=== PATIENT | female | born 1945 | race Caucasian/White ===

== ENCOUNTER 2016-08-03 10:08 | Outpatient (CLI) | payer MEDICARE ==
[2016-08-03 10:59] LABS: ALT (SGPT) 21 U/L (0-55); AST (SGOT) 21 U/L (5-34); Albumin 4.5 g/dL (3.4-4.8); Alkaline Phosphatase 61 U/L (40-150); Anion Gap 16 mmol/L (10-20); BUN (Urea Nitrogen) 22 mg/dL (9.8-20.1); Bilirubin, Total 0.5 mg/dL (0.2-1.2); Calc. Creatinine Clearance 0 mL/min (70-130); Calcium 10.1 mg/dL (7.8-10.44); Carbon Dioxide 26 mmol/L (23-31); Cardiac Risk 3.1 (Less than 4.5); Chloride 104 mmol/L (98-107); Cholesterol 143 mg/dL (< 200 Desired); Estimated GFR-MDRD 49; Globulin 2.9 g/dL (2.4-3.5); Glucose 156 mg/dL (80-115); HDL Cholesterol 46 mg/dL (>60 Neg Risk); LDL Cholesterol, Calculated 70 mg/dL; Protein, Total 7.4 g/dL (5.8-8.1); Sodium 140 mmol/L (136-145); Triglycerides 137 mg/dL (Less than 150)
[2016-08-03 11:37] LABS: #Eosinphils 0.1 thou/uL (0.0-0.7); #Lymphocytes 1.6 thou/uL (1.20-3.40); #Monocytes 0.4 thou/uL (0.11-0.59); #Neutrophils 4.4 thou/uL (1.40-6.50); %Basophils 0.7 % (0.0-1.0); %Eosinophils 2.2 % (0.0-10.0); %Monocytes 6.6 % (0.0-10.0); %Neutrophils 66.5 % (42.0-75.0); Mean Corpuscular HGB CONC 31.6 g/dL (32.0-36.0); Mean Corpuscular Hemoglobin 28.5 pg (27.0-31.0); Mean Corpuscular Volume 90.3 fl (81.0-99.0); Platelet Count 245 thou/uL (130-400); RBC Distribution Width 14.6 % (11.5-14.5); Red Blood Cell (RBC) Count 4.54 mill/uL (4.20-5.40); White Blood Cell (WBC) Count 6.6 thou/uL (4.8-10.8)
[2016-08-03 12:05] LABS: Hemoglobin A1c 8.2 % (4.0-6.0)
== END 2016-08-03 10:09 | disposition home or self-care (01) ==
LOC: HPCALD 10:08
PROVIDERS: ATTEND Family Medicine
DX: E78.00 Pure hypercholesterolemia, unspecified (principal); E11.9 Type 2 diabetes mellitus without complications; I10 Essential (primary) hypertension
CPT/HCPCS: 36415; 80053; 80061; 83036; 85025

== ENCOUNTER 2016-12-01 13:20 | Emergency (ER) | payer MEDICARE ==
[2016-12-01 13:58] LABS: Bilirubin Negative (Negative); Blood, Urine Moderate (Negative); Glucose, Urine (Dipstick) 500 mg/dL (Negative); Leukocyte Trace (Negative); Nitrite Negative (Negative); Protein, Urine (Dipstick) Trace mg/dL (Neg-Trace); Urobilinogen 0.2 mg/dL (0.2-1.0)
[2016-12-01 13:59] LABS: #Monocytes 0.2 thou/uL (0.11-0.59); #Neutrophils 6.9 thou/uL (1.40-6.50); %Basophils 0.5 % (0.0-1.0); %Lymphocytes 11.8 % (21.0-51.0); %Monocytes 2.8 % (0.0-10.0); %Neutrophils 84.9 % (42.0-75.0); Hemoglobin 12.8 g/dL (12.0-16.0); Mean Corpuscular HGB CONC 32.6 g/dL (32.0-36.0); Mean Platelet Volume 5.3 fL (7.4-10.4); Platelet Count 290 thou/uL (130-400); Red Blood Cell (RBC) Count 4.41 mill/uL (4.20-5.40); White Blood Cell (WBC) Count 8.1 thou/uL (4.8-10.8)
[2016-12-01 14:08] LABS: Bacteria/HPF Rare-Few HPF (None Seen); Clarity Hazy (Clear); Squamous Epithelial 0-3 HPF (0-3)
[2016-12-01 14:10] LABS: ALT (SGPT) 22 U/L (8-55); AST (SGOT) 19 U/L (5-34); Albumin 4.1 g/dL (3.4-4.8); Alkaline Phosphatase 57 U/L (40-150); Anion Gap 18 mmol/L (10-20); BUN (Urea Nitrogen) 14 mg/dL (9.8-20.1); Bilirubin, Total 0.3 mg/dL (0.2-1.2); Calc. Creatinine Clearance 0 mL/min (70-130); Calcium 9.4 mg/dL (7.8-10.44); Carbon Dioxide 21 mmol/L (23-31); Chloride 100 mmol/L (98-107); Estimated GFR-MDRD 51; Globulin 3.2 g/dL (2.4-3.5); Glucose 523 mg/dL (80-115); Protein, Total 7.3 g/dL (6.0-8.3); Sodium 134 mmol/L (136-145)
== END 2016-12-01 16:09 | disposition home or self-care (01) ==
LOC: BURERS 13:20
DX: E11.00 Type 2 diabetes mellitus with hyperosmolarity without nonketotic hyperglycemic-hyperosmolar coma (NKHHC) (principal); I10 Essential (primary) hypertension; E78.5 Hyperlipidemia, unspecified; F41.9 Anxiety disorder, unspecified; Z79.4 Long term (current) use of insulin; Z79.82 Long term (current) use of aspirin; Z79.899 Other long term (current) drug therapy; Z79.84 Long term (current) use of oral hypoglycemic drugs
CPT/HCPCS: 36415; 36416; 80053; 81003; 81015; 85025; 87077; 87086; 87186; 96360; 96361

== ENCOUNTER 2017-01-26 13:38 | Outpatient (CLI) | payer MEDICARE ==
[2017-01-26 13:52] LABS: #Basophils 0.1 thou/uL (0.0-0.2); #Eosinphils 0.2 thou/uL (0.0-0.7); #Monocytes 0.4 thou/uL (0.11-0.59); #Neutrophils 3.4 thou/uL (1.40-6.50); %Basophils 1.1 % (0.0-1.0); %Eosinophils 3.2 % (0.0-10.0); %Lymphocytes 32.4 % (21.0-51.0); %Monocytes 6.6 % (0.0-10.0); %Neutrophils 56.7 % (42.0-75.0); Hemoglobin 12.3 g/dL (12.0-16.0); Mean Corpuscular HGB CONC 31.2 g/dL (32.0-36.0); Mean Corpuscular Hemoglobin 28.1 pg (27.0-31.0); Mean Corpuscular Volume 90.2 fl (81.0-99.0); Platelet Count 234 thou/uL (130-400); RBC Distribution Width 13.7 % (11.5-14.5); Red Blood Cell (RBC) Count 4.37 mill/uL (4.20-5.40)
[2017-01-26 14:15] LABS: ALT (SGPT) 23 U/L (8-55); AST (SGOT) 21 U/L (5-34); Albumin 4.4 g/dL (3.4-4.8); Alkaline Phosphatase 61 U/L (40-150); Anion Gap 14 mmol/L (10-20); BUN (Urea Nitrogen) 11 mg/dL (9.8-20.1); Bilirubin, Total 0.5 mg/dL (0.2-1.2); Calc. Creatinine Clearance 0 mL/min (70-130); Calcium 9.8 mg/dL (7.8-10.44); Carbon Dioxide 29 mmol/L (23-31); Cardiac Risk 4.2 (Less than 4.5); Chloride 103 mmol/L (98-107); Cholesterol 212 mg/dl (< 200 Desired); Estimated GFR-MDRD 57; Globulin 2.8 g/dL (2.4-3.5); Glucose 140 mg/dL (80-115); HDL Cholesterol 50 mg/dL (>60 Neg Risk); Hemoglobin A1c 8.1 % (4.0-6.0); LDL Cholesterol, Calculated 109 mg/dL; Potassium 5.4 mmol/L (3.5-5.1); Protein, Total 7.2 g/dL (6.0-8.3); Sodium 141 mmol/L (136-145); Triglycerides 267 mg/dL (Less than 150)
== END 2017-01-26 13:39 | disposition home or self-care (01) ==
LOC: HPCALD 13:38
PROVIDERS: ATTEND Family Medicine
DX: N39.0 Urinary tract infection, site not specified (principal); E78.00 Pure hypercholesterolemia, unspecified; E11.9 Type 2 diabetes mellitus without complications; I10 Essential (primary) hypertension
CPT/HCPCS: 80053; 80061; 83036; 85025; 87077; 87086; 87186

== ENCOUNTER 2018-02-10 13:58 | Inpatient (IN) | payer MEDICARE ==
[2018-02-10 15:26] LABS: #Eosinphils 0.1 thou/uL (0.0-0.7); #Lymphocytes 1.8 thou/uL (1.20-3.40); #Monocytes 0.4 thou/uL (0.11-0.59); #Neutrophils 2.6 thou/uL (1.40-6.50); %Basophils 0.8 % (0.0-1.0); %Lymphocytes 36.9 % (21.0-51.0); %Monocytes 7.2 % (0.0-10.0); %Neutrophils 53.2 % (42.0-75.0); Hemoglobin 12.8 g/dL (12.0-16.0); Mean Corpuscular HGB CONC 31.9 g/dL (32.0-36.0); Mean Corpuscular Hemoglobin 28.1 pg (27.0-31.0); Mean Corpuscular Volume 87.9 fL (78.0-98.0); Mean Platelet Volume 6.8 fL (7.4-10.4); Platelet Count 247 thou/uL (130-400); Red Blood Cell (RBC) Count 4.56 mill/uL (4.20-5.40)
[2018-02-10 15:34] LABS: Clarity Cloudy (Clear); Glucose, Urine (Dipstick) 500 mg/dL (Negative); Leukocyte Small (Negative); Nitrite Negative (Negative); Protein, Urine (Dipstick) 30 mg/dL (Neg-Trace)
[2018-02-10 15:35] LABS: Bilirubin Negative (Negative); Blood, Urine Small (Negative); Urobilinogen 0.2 mg/dL (0.2-1.0)
[2018-02-10 15:35] LABS: ALT (SGPT) 21 U/L (8-55); AST (SGOT) 20 U/L (5-34); Albumin 4.4 g/dL (3.4-4.8); Alkaline Phosphatase 48 U/L (40-150); Anion Gap 15 mmol/L (10-20); BUN (Urea Nitrogen) 13 mg/dL (9.8-20.1); Bilirubin, Total 0.4 mg/dL (0.2-1.2); Calc. Creatinine Clearance 104 mL/min (70-130); Carbon Dioxide 29 mmol/L (23-31); Chloride 100 mmol/L (98-107); Estimated GFR-MDRD 70; Glucose 280 mg/dL (83-110); Potassium 5.2 mmol/L (3.5-5.1); Protein, Total 7.4 g/dL (6.0-8.3); Sodium 139 mmol/L (136-145)
[2018-02-10 15:39] LABS: Bacteria/HPF 2+ HPF (None Seen); RBC/HPF 0-3 HPF (0-3); Squamous Epithelial 0-3 HPF (0-3); WBC/HPF 21-50 HPF (0-3); Yeast-All Forms 4+ HPF (None Seen)
[2018-02-10] MEDS ORDERED: Promethazine HCl 25 MG/ML VIAL IM/IV PRN (15:45)
[2018-02-10] MEDS ORDERED: Acetaminophen 325 MG TAB PO PRN (15:45)
[2018-02-10] MEDS: HYDROcodone/Acetaminophen 10/325 mg Tablet PO SCH (18:43)
[2018-02-10] MEDS: Piperacillin/Tazobactam 3.375 GM in Sodium Chloride 0.9% 100 ML IVPB SCH (18:46)
[2018-02-10] MEDS ORDERED: Sodium Chloride 0.9% 10 ML ONE (18:56)
[2018-02-10] MEDS: Oxybutynin 5 MG TAB PO SCH (20:56)
[2018-02-10] MEDS: Metoprolol Tartrate 25 MG TAB PO SCH (20:56)
[2018-02-10] MEDS: glipiZIDE 5 MG TAB PO SCH (20:57)
[2018-02-10] MEDS ORDERED: Non-Formulary Item 1 EACH (Lovastatin [Lovastatin] 20 MG) PO SCH (21:00)
--- NOTE | 2018-02-10 22:49 | HP ---
DATE OF ADMISSION: 02/10/2018 CHIEF COMPLAINT: Complicated urinary tract infection resistant to p.o. antibiotics. HISTORY OF PRESENT ILLNESS: A 72-year-old female with history of frequent urinary tract infections recently presented to the outpatient setting with UTI symptoms. She was subsequently diagnosed with UTI and started on Macrobid empirically. Unfortunately, resultant culture grew Morganella morganii, which was resistant to all p.o. antibiotic options. Therefore, she has been requested to admit directly for IV antibiotic therapy to treat her current UTI. The patient has had a prior bladder mesh which is felt to be the nidus of her frequent urinary tract infections. She is afebrile with normal vital signs. Other medical conditions include type 2 diabetes mellitus, hypertension, hyperlipidemia, anxiety, depression and melanoma. She is periodically seen at [facility] in regards to her melanoma. She actually returned back locally from a visit to [facility] yesterday. Initial site of melanoma was located to her distal fingertip and subsequently had a prior axillary lymph node removal due to metastatic spread. Since that time, she has had lesions located to her lungs which have required interventional treatment via her oncologist. She will return in 4 weeks for a followup treatment in regards to a recently enlarged pulmonary lesion. The patient has no specific concerns at this time and fully understands her need for IV antibiotic therapy for her admitting diagnosis. PAST MEDICAL HISTORY: Frequent urinary tract infections, type 2 diabetes mellitus, melanoma, hypertension, hyperlipidemia, anxiety and depression. PAST SURGICAL HISTORY: Bladder mesh in 2009, knee replacement in 2005, hysterectomy in 1993, cholecystectomy, biopsy of the left axilla followed by adenopathy excision from the left axilla. SOCIAL HISTORY: The patient lives locally. Nonsmoker with no frequent ETOH use. Denies illicit drug use. ALLERGIES: IODINE and LISINOPRIL. FAMILY HISTORY: Noncontributory. CURRENT MEDICATIONS: Include aspirin 81 mg p.o. daily, atorvastatin 10 mg p.o. daily, escitalopram 10 mg p.o. daily, glipizide 2.5 mg p.o. b.i.d., [place] 10/ 325 one tab p.o. q.6 hours p.r.n., Tresiba 80 units daily, losartan 25 mg p.o. daily, metformin 1000 mg p.o. b.i.d., metoprolol 25 mg p.o. b.i.d., multivitamin 1 tab daily, oxybutynin 5 mg p.o. b.i.d. REVIEW OF SYSTEMS: GENERAL: Denies fever, chills or diaphoresis. EAR, NOSE, AND THROAT: Denies sore throat, nasal drainage or congestion. CARDIOVASCULAR: Denies chest pain or palpitations. RESPIRATORY: Denies shortness of breath or cough. GASTROINTESTINAL: Denies abdominal pain, nausea, vomiting, diarrhea or constipation. GENITOURINARY: Complains of dysuria. MUSCULOSKELETAL: Denies joint swelling or pain. DERMATOLOGIC: Denies rash. NEUROLOGIC: Denies headache. LABORATORY DATA: Pending CBC, CMP, UA and urine culture. PHYSICAL EXAMINATION: VITAL SIGNS: Temperature is 98.2, pulse is 95, respiratory rate is 20, blood pressure is 135/63, oxygen 95% on room air. GENERAL: Patient is alert and oriented, in no acute distress. FACE: No asymmetry. EYES: Conjunctivae are clear. Extraocular muscles are intact. No discharge. HEAD, EYES, EARS, NOSE, AND THROAT: Within normal limits. Oral cavity has moist mucous membranes. NECK: Supple, full range of motion. No lymphadenopathy. CARDIOVASCULAR: Regular rate and rhythm, normal S1, S2. No murmurs, rubs or gallops. RESPIRATORY: Clear to auscultation bilaterally. No wheezes, rales or rhonchi. GASTROINTESTINAL: Soft, nontender to palpation, no masses. EXTREMITIES: No clubbing, cyanosis or edema. 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 SKIN: No rash. NEUROLOGIC: Exam is nonfocal. Cranial nerves II-XII are grossly intact. ASSESSMENT AND PLAN: 1. Complicated urinary tract infection resistant to p.o. antibiotics; h/o frequent UTI related to bladder mesh. Urinalysis has been obtained with planned urine culture. We will base current treatment off of obtained urine culture on 02/06/2018, isolating Morganella morganii and treat accordingly with Zosyn 3.375 mg IV q.6 hours. 2. Type 2 diabetes mellitus. We will resume the patient's usual diabetic medications with a.c. and at bedtime glucose checks. 3. Hypertension. We will resume the patient's usual blood pressure medications. She is currently hemodynamically stable. 4. Hyperlipidemia. We will resume the patient's statin. 5. Anxiety and depression. We will continue patient's SNRI. 6. Melanoma, chronic issue followed by [facility]. She will have a followup appointment there in 4 weeks. Prophylaxis, Lovenox and famotidine. CODE STATUS: FULL. DISPOSITION: The patient will plan to discharge to her home upon completing a 7 day course of IV antibiotics. MTDD
[2018-02-11] MEDS: HYDROcodone/Acetaminophen 10/325 mg Tablet PO SCH ×4 (00:39→17:59)
[2018-02-11] MEDS: Piperacillin/Tazobactam 3.375 GM in Sodium Chloride 0.9% 100 ML IVPB SCH ×4 (00:39→17:57)
[2018-02-11] MEDS ORDERED: Dextrose 50% Abboject 50 ML SYRINGE SLOW IVP PRN (08:09)
[2018-02-11] MEDS ORDERED: Dextrose 5% in Water 1,000 ML IV PRN (08:09)
[2018-02-11] MEDS ORDERED: Insulin Glargine 100 UNIT/ML 3 ML PEN SQ SCH (09:00)
[2018-02-11] MEDS: metFORMIN 500 MG TAB PO SCH ×2 (09:43→17:59)
[2018-02-11] MEDS: glipiZIDE 5 MG TAB PO SCH ×2 (09:44→20:35)
[2018-02-11] MEDS: Metoprolol Tartrate 25 MG TAB PO SCH ×2 (09:44→20:35)
[2018-02-11] MEDS: Famotidine 20 MG TAB PO SCH (09:44)
[2018-02-11] MEDS: Atorvastatin Calcium 10 MG TAB PO SCH (09:44)
[2018-02-11] MEDS: Escitalopram Oxalate 20 mg Tablet PO SCH (09:45)
[2018-02-11] MEDS: Aspirin 81 mg Enteric Coated Tablet PO SCH (09:46)
[2018-02-11] MEDS: Oxybutynin 5 MG TAB PO SCH ×2 (09:46→20:35)
[2018-02-11] MEDS: Losartan Potassium 50 MG TAB PO SCH (09:46)
[2018-02-11] MEDS: Multivit, Therapeutic 1 TAB PO SCH (09:46)
[2018-02-11] MEDS: Enoxaparin Sodium 30 MG/0.3 ML SYRINGE SC SCH (09:47)
[2018-02-11] MEDS: Insulin Regular 300 UNITS/3 ML VIAL SC PRN (13:01)
[2018-02-12] MEDS: HYDROcodone/Acetaminophen 10/325 mg Tablet PO SCH ×5 (00:07→23:20)
[2018-02-12] MEDS: Piperacillin/Tazobactam 3.375 GM in Sodium Chloride 0.9% 100 ML IVPB SCH ×5 (00:09→23:21)
[2018-02-12] MEDS: glipiZIDE 5 MG TAB PO SCH ×2 (09:08→22:11)
[2018-02-12] MEDS: metFORMIN 500 MG TAB PO SCH ×2 (09:09→18:15)
[2018-02-12] MEDS: Aspirin 81 mg Enteric Coated Tablet PO SCH (09:09)
[2018-02-12] MEDS: Metoprolol Tartrate 25 MG TAB PO SCH ×2 (09:10→22:11)
[2018-02-12] MEDS: Escitalopram Oxalate 20 mg Tablet PO SCH (09:10)
[2018-02-12] MEDS: Oxybutynin 5 MG TAB PO SCH ×2 (09:10→22:11)
[2018-02-12] MEDS: Multivit, Therapeutic 1 TAB PO SCH (09:10)
[2018-02-12] MEDS: Famotidine 20 MG TAB PO SCH (09:11)
[2018-02-12] MEDS: Atorvastatin Calcium 10 MG TAB PO SCH (09:11)
[2018-02-12] MEDS: Losartan Potassium 50 MG TAB PO SCH (09:11)
[2018-02-12] MEDS: Enoxaparin Sodium 30 MG/0.3 ML SYRINGE SC SCH (09:11)
[2018-02-12] MEDS: Insulin Regular 300 UNITS/3 ML VIAL SC PRN ×3 (09:12→18:18)
[2018-02-13] MEDS: Piperacillin/Tazobactam 3.375 GM in Sodium Chloride 0.9% 100 ML IVPB SCH ×4 (06:23→23:27)
[2018-02-13] MEDS: HYDROcodone/Acetaminophen 10/325 mg Tablet PO SCH ×4 (06:23→23:26)
[2018-02-13] MEDS: Levemir Flexpen 100 UNITS/ML PEN SC SCH (09:59)
[2018-02-13] MEDS: Insulin Regular 300 UNITS/3 ML VIAL SC PRN ×2 (10:00→13:15)
[2018-02-13] MEDS: Enoxaparin Sodium 30 MG/0.3 ML SYRINGE SC SCH (10:08)
[2018-02-13] MEDS: glipiZIDE 5 MG TAB PO SCH ×2 (10:10→21:11)
[2018-02-13] MEDS: Famotidine 20 MG TAB PO SCH (10:10)
[2018-02-13] MEDS: Oxybutynin 5 MG TAB PO SCH ×2 (10:10→21:19)
[2018-02-13] MEDS: metFORMIN 500 MG TAB PO SCH ×2 (10:10→17:26)
[2018-02-13] MEDS: Metoprolol Tartrate 25 MG TAB PO SCH ×2 (10:11→21:19)
[2018-02-13] MEDS: Losartan Potassium 50 MG TAB PO SCH (10:11)
[2018-02-13] MEDS: Escitalopram Oxalate 20 mg Tablet PO SCH (10:11)
[2018-02-13] MEDS: Atorvastatin Calcium 10 MG TAB PO SCH (10:11)
[2018-02-13] MEDS: Multivit, Therapeutic 1 TAB PO SCH (10:11)
[2018-02-13] MEDS: Aspirin 81 mg Enteric Coated Tablet PO SCH (10:11)
[2018-02-13 17:17] VITALS: BMI 34.5
[2018-02-14] MEDS: HYDROcodone/Acetaminophen 10/325 mg Tablet PO SCH ×4 (05:45→23:54)
[2018-02-14] MEDS: Piperacillin/Tazobactam 3.375 GM in Sodium Chloride 0.9% 100 ML IVPB SCH ×4 (05:47→23:54)
[2018-02-14] MEDS: Levemir Flexpen 100 UNITS/ML PEN SC SCH (09:16)
[2018-02-14] MEDS: Insulin Regular 300 UNITS/3 ML VIAL SC PRN ×2 (09:17→12:54)
[2018-02-14] MEDS: glipiZIDE 5 MG TAB PO SCH ×2 (09:21→21:05)
[2018-02-14] MEDS: Oxybutynin 5 MG TAB PO SCH ×2 (09:21→21:07)
[2018-02-14] MEDS: Aspirin 81 mg Enteric Coated Tablet PO SCH (09:21)
[2018-02-14] MEDS: Metoprolol Tartrate 25 MG TAB PO SCH ×2 (09:22→21:07)
[2018-02-14] MEDS: Atorvastatin Calcium 10 MG TAB PO SCH (09:22)
[2018-02-14] MEDS: metFORMIN 500 MG TAB PO SCH ×2 (09:22→17:30)
[2018-02-14] MEDS: Multivit, Therapeutic 1 TAB PO SCH (09:22)
[2018-02-14] MEDS: Famotidine 20 MG TAB PO SCH (09:22)
[2018-02-14] MEDS: Escitalopram Oxalate 20 mg Tablet PO SCH (09:23)
[2018-02-14] MEDS: Losartan Potassium 50 MG TAB PO SCH (09:24)
[2018-02-14] MEDS: Enoxaparin Sodium 30 MG/0.3 ML SYRINGE SC SCH (09:26)
[2018-02-15] MEDS: HYDROcodone/Acetaminophen 10/325 mg Tablet PO SCH ×3 (05:03→18:04)
[2018-02-15] MEDS: Piperacillin/Tazobactam 3.375 GM in Sodium Chloride 0.9% 100 ML IVPB SCH ×3 (05:04→18:05)
[2018-02-15] MEDS: Insulin Regular 300 UNITS/3 ML VIAL SC PRN ×2 (09:08→14:19)
[2018-02-15] MEDS: Enoxaparin Sodium 30 MG/0.3 ML SYRINGE SC SCH (09:10)
[2018-02-15] MEDS: Levemir Flexpen 100 UNITS/ML PEN SC SCH (09:10)
[2018-02-15] MEDS: Atorvastatin Calcium 10 MG TAB PO SCH (09:14)
[2018-02-15] MEDS: metFORMIN 500 MG TAB PO SCH ×2 (09:14→18:04)
[2018-02-15] MEDS: Metoprolol Tartrate 25 MG TAB PO SCH ×2 (09:14→20:03)
[2018-02-15] MEDS: Oxybutynin 5 MG TAB PO SCH ×2 (09:15→20:04)
[2018-02-15] MEDS: Losartan Potassium 50 MG TAB PO SCH (09:15)
[2018-02-15] MEDS: Multivit, Therapeutic 1 TAB PO SCH (09:15)
[2018-02-15] MEDS: Escitalopram Oxalate 20 mg Tablet PO SCH (09:16)
[2018-02-15] MEDS: Famotidine 20 MG TAB PO SCH (09:16)
[2018-02-15] MEDS: Aspirin 81 mg Enteric Coated Tablet PO SCH (09:16)
[2018-02-15] MEDS: glipiZIDE 5 MG TAB PO SCH ×2 (09:17→20:02)
[2018-02-16] MEDS: Piperacillin/Tazobactam 3.375 GM in Sodium Chloride 0.9% 100 ML IVPB SCH ×4 (00:01→18:06)
[2018-02-16] MEDS: HYDROcodone/Acetaminophen 10/325 mg Tablet PO SCH ×4 (00:30→18:04)
[2018-02-16] MEDS: Metoprolol Tartrate 25 MG TAB PO SCH ×2 (10:11→21:34)
[2018-02-16] MEDS: Escitalopram Oxalate 20 mg Tablet PO SCH (10:11)
[2018-02-16] MEDS: Famotidine 20 MG TAB PO SCH (10:11)
[2018-02-16] MEDS: metFORMIN 500 MG TAB PO SCH ×2 (10:12→18:05)
[2018-02-16] MEDS: Losartan Potassium 50 MG TAB PO SCH (10:13)
[2018-02-16] MEDS: glipiZIDE 5 MG TAB PO SCH ×2 (10:13→21:34)
[2018-02-16] MEDS: Aspirin 81 mg Enteric Coated Tablet PO SCH (10:13)
[2018-02-16] MEDS: Multivit, Therapeutic 1 TAB PO SCH (10:14)
[2018-02-16] MEDS: Oxybutynin 5 MG TAB PO SCH ×2 (10:14→21:34)
[2018-02-16] MEDS: Levemir Flexpen 100 UNITS/ML PEN SC SCH (10:15)
[2018-02-16] MEDS: Atorvastatin Calcium 10 MG TAB PO SCH (10:15)
[2018-02-16] MEDS: Saccharomyces boulardii 250 MG CAP PO SCH (10:15)
[2018-02-16] MEDS: Enoxaparin Sodium 30 MG/0.3 ML SYRINGE SC SCH (10:16)
[2018-02-16] MEDS: Loperamide HCl 2 MG CAP PO PRN ×2 (10:23→21:35)
[2018-02-16] MEDS: Insulin Regular 300 UNITS/3 ML VIAL SC PRN ×2 (13:17→21:40)
[2018-02-17] MEDS: HYDROcodone/Acetaminophen 10/325 mg Tablet PO SCH ×4 (00:01→18:06)
[2018-02-17] MEDS: Piperacillin/Tazobactam 3.375 GM in Sodium Chloride 0.9% 100 ML IVPB SCH ×4 (06:17→18:06)
[2018-02-17 06:44] LABS: Clarity Slightly Cloudy (Clear); Leukocyte Large (Negative); Nitrite Negative (Negative); Protein, Urine (Dipstick) Negative (Neg-Trace); Specific Gravity, Urine 1.003 (1.005-1.030); pH, Urine 6.5 (5.0-9.0)
[2018-02-17 06:45] LABS: Bilirubin Negative (Negative); Blood, Urine Trace (Negative); Glucose, Urine (Dipstick) Negative (Negative); Urobilinogen 0.2 mg/dL (0.2-1.0)
[2018-02-17 06:52] LABS: Bacteria/HPF Rare-Few HPF (None Seen); RBC/HPF 0-3 HPF (0-3); Squamous Epithelial 0-3 HPF (0-3); Yeast-All Forms 1+ HPF (None Seen)
[2018-02-17] MEDS: Enoxaparin Sodium 30 MG/0.3 ML SYRINGE SC SCH (10:02)
[2018-02-17] MEDS: Levemir Flexpen 100 UNITS/ML PEN SC SCH (10:03)
[2018-02-17] MEDS: Atorvastatin Calcium 10 MG TAB PO SCH (10:05)
[2018-02-17] MEDS: Escitalopram Oxalate 20 mg Tablet PO SCH (10:05)
[2018-02-17] MEDS: Metoprolol Tartrate 25 MG TAB PO SCH ×2 (10:05→21:56)
[2018-02-17] MEDS: Multivit, Therapeutic 1 TAB PO SCH (10:06)
[2018-02-17] MEDS: Losartan Potassium 50 MG TAB PO SCH (10:07)
[2018-02-17] MEDS: glipiZIDE 5 MG TAB PO SCH ×2 (10:07→21:56)
[2018-02-17] MEDS: metFORMIN 500 MG TAB PO SCH ×2 (10:08→18:05)
[2018-02-17] MEDS: Saccharomyces boulardii 250 MG CAP PO SCH (10:08)
[2018-02-17] MEDS: Famotidine 20 MG TAB PO SCH (10:08)
[2018-02-17] MEDS: Aspirin 81 mg Enteric Coated Tablet PO SCH (10:08)
[2018-02-17] MEDS: Oxybutynin 5 MG TAB PO SCH ×2 (10:08→21:56)
[2018-02-17] MEDS: Insulin Regular 300 UNITS/3 ML VIAL SC PRN (13:11)
[2018-02-18] MEDS: Piperacillin/Tazobactam 3.375 GM in Sodium Chloride 0.9% 100 ML IVPB SCH ×3 (00:18→12:07)
[2018-02-18] MEDS: HYDROcodone/Acetaminophen 10/325 mg Tablet PO SCH ×3 (00:18→12:11)
[2018-02-18 06:44] VITALS: BP 149/67; TEMP 97.1
[2018-02-18] MEDS: glipiZIDE 5 MG TAB PO SCH (09:23)
[2018-02-18] MEDS: Metoprolol Tartrate 25 MG TAB PO SCH (09:23)
[2018-02-18] MEDS: Atorvastatin Calcium 10 MG TAB PO SCH (09:23)
[2018-02-18] MEDS: Famotidine 20 MG TAB PO SCH (09:24)
[2018-02-18] MEDS: Aspirin 81 mg Enteric Coated Tablet PO SCH (09:24)
[2018-02-18] MEDS: Escitalopram Oxalate 20 mg Tablet PO SCH (09:24)
[2018-02-18] MEDS: Oxybutynin 5 MG TAB PO SCH (09:25)
[2018-02-18] MEDS: Multivit, Therapeutic 1 TAB PO SCH (09:25)
[2018-02-18] MEDS: Losartan Potassium 50 MG TAB PO SCH (09:25)
[2018-02-18] MEDS: Saccharomyces boulardii 250 MG CAP PO SCH (09:26)
[2018-02-18] MEDS: metFORMIN 500 MG TAB PO SCH (09:26)
[2018-02-18] MEDS: Enoxaparin Sodium 30 MG/0.3 ML SYRINGE SC SCH (09:28)
[2018-02-18] MEDS: Levemir Flexpen 100 UNITS/ML PEN SC SCH (09:29)
[2018-02-18] MEDS: Insulin Regular 300 UNITS/3 ML VIAL SC PRN (13:04)
--- NOTE | 2018-02-18 15:45 | DIS ---
DATE OF ADMISSION: 02/10/2018 DATE OF DISCHARGE: 02/18/2018 ADMISSION DIAGNOSIS: Complicated urinary tract infection, resistant to p.o. antibiotics. SECONDARY DIAGNOSES: Type 2 diabetes mellitus, hypertension, hyperlipidemia, anxiety, depression, me lanoma, diarrhea. PROCEDURES: None. HOSPITAL COURSE: A 72-year-old female with history of frequent urinary tract infections, related to a bladder mesh, was seen in the outpatient setting for urinary tract infection symptoms. She was sub sequently found per her urine culture to have an isolated bacteria of Morganella morganii, which was resistant to all p.o. antibiotic options; therefore, she was directly admitted to the hospital and in itiated on Zosyn per said culture. She was effectively treated for a 7-day course of this IV antibio tic. Repeat urine culture in the hospital did grow Enterococcus, which was susceptible to numerous p .o. antibiotics, for which she will be discharged further on a 1-week course of p.o. Levaquin. Durin g her stay, she did have some diarrhea, which was resolved with Imodium and probiotics. She remained afebrile throughout her stay with no leukocytosis and is suitable to return home at this time. Of note, the patient has had an evaluation by 3-4 separate urologists regarding her history of urinar y tract infections, associated with her bladder mesh. It has been concluded that she is not a candid ate for surgical intervention regarding bladder mesh removal nor is she a candidate for daily prophyl actic antibiotics per these consultations. DISPOSITION: The patient will be discharge home. Follow up with myself in a week. DISCHARGE MEDICATIONS: The patient will have one new medication including Levaquin 500 mg p.o. daily x7 days. She will resume her usual medications, which include aspirin 81 mg p.o. daily, atorvastati n 10 mg p.o. daily, escitalopram 10 mg p.o. daily, glipizide 2.5 mg p.o. b.i.d., [place] 10/325 one tab p.o. q.6 hours p.r.n., Tresiba 80 units daily, losartan 25 mg p.o. daily, metformin 1000 mg p.o. b.i .d., metoprolol 25 mg p.o. b.i.d., multivitamin p.o. daily, Oxybutynin 5 mg p.o. b.i.d.
== END 2018-02-18 14:01 | disposition home or self-care (01) | DRG 690 ==
LOC: BURMED 13:58 → UNDOADMIN 13:58
PROVIDERS: ADMIT Family Medicine; ATTEND Family Medicine
DX: N39.0 Urinary tract infection, site not specified (principal); C77.3 Secondary and unspecified malignant neoplasm of axilla and upper limb lymph nodes; B96.89 Other specified bacterial agents as the cause of diseases classified elsewhere; Z16.20 Resistance to unspecified antibiotic; E11.9 Type 2 diabetes mellitus without complications; I10 Essential (primary) hypertension; E78.5 Hyperlipidemia, unspecified; F41.9 Anxiety disorder, unspecified; F32.9 Major depressive disorder, single episode, unspecified; C43.9 Malignant melanoma of skin, unspecified; R19.7 Diarrhea, unspecified; B95.2 Enterococcus as the cause of diseases classified elsewhere
CPT/HCPCS: 36415; 36416; 80053; 81001; 85025; 87077; 87086; 87186; J1650; J1815; J2543; J7050

== ENCOUNTER 2018-06-24 06:16 | Emergency (ER) | payer MEDICARE ==
[2018-06-24 06:37] LABS: Clarity Cloudy (Clear); Leukocyte Small (Negative); Nitrite Negative (Negative); Protein, Urine (Dipstick) 100 mg/dL (Neg-Trace)
[2018-06-24 06:38] LABS: Bilirubin Negative (Negative); Blood, Urine Large (Negative); Glucose, Urine (Dipstick) >=1000 mg/dL (Negative); Urobilinogen 0.2 mg/dL (0.2-1.0)
[2018-06-24 06:41] LABS: Bacteria/HPF Rare-Few HPF (None Seen); RBC/HPF GREATER THAN 50-TNTC HPF (0-3); Squamous Epithelial 0-3 HPF (0-3)
[2018-06-24] MEDS ORDERED: Nitrofurantoin Monohyd/M-Cryst 100 MG CAP ONE (06:51)
== END 2018-06-24 06:55 | disposition home or self-care (01) ==
LOC: BURERS 06:16
DX: N39.0 Urinary tract infection, site not specified (principal); F41.9 Anxiety disorder, unspecified; E11.9 Type 2 diabetes mellitus without complications; I10 Essential (primary) hypertension; E78.5 Hyperlipidemia, unspecified; Z79.899 Other long term (current) drug therapy; Z79.891 Long term (current) use of opiate analgesic; Z79.84 Long term (current) use of oral hypoglycemic drugs
CPT/HCPCS: 36416; 81003; 81015; 87086; 99283

== ENCOUNTER 2018-06-26 09:37 | Emergency (ER) | payer MEDICARE ==
[2018-06-26] MEDS ORDERED: cefTRIAXone\\ROCEPHIN 1 GM VIAL ONE (10:10)
[2018-06-26] MEDS ORDERED: Ibuprofen 800 MG TAB ONE (10:10)
[2018-06-26] MEDS ORDERED: Phenazopyridine HCl 97.5 MG TABLET ONE (10:10)
== END 2018-06-26 10:32 | disposition home or self-care (01) ==
LOC: BURERS 09:37
DX: N30.01 Acute cystitis with hematuria (principal); E11.9 Type 2 diabetes mellitus without complications; E78.5 Hyperlipidemia, unspecified; I10 Essential (primary) hypertension; F41.9 Anxiety disorder, unspecified; Z79.891 Long term (current) use of opiate analgesic; Z79.4 Long term (current) use of insulin; Z79.899 Other long term (current) drug therapy; Z79.84 Long term (current) use of oral hypoglycemic drugs
CPT/HCPCS: 96372; J0696

== ENCOUNTER 2023-11-24 11:44 | Emergency (ER) | payer MEDICARE ==
[~2023-11-24 11:44] MED LIST: Aspirin Chewable 81 MG TAB ONE
[2023-11-24 12:15] LABS: #Eosinphils 0.1 thou/uL (0.0-0.7); #Lymphocytes 1.3 thou/uL (1.20-3.40); #Monocytes 0.5 thou/uL (0.11-0.59); #Neutrophils 4.8 thou/uL (1.40-6.50); %Basophils 0.7 % (0.0-1.0); %Eosinophils 1.5 % (0.0-10.0); %Lymphocytes 19.7 % (21.0-51.0); %Monocytes 7.5 % (0.0-10.0); %Neutrophils 70.6 % (42.0-75.0); Hematocrit 42.6 % (36.0-47.0); Mean Corpuscular HGB CONC 30.6 g/dL (32.0-36.0); Mean Corpuscular Hemoglobin 25.3 pg (27.0-31.0); Mean Corpuscular Volume 82.6 fl (78.0-98.0); Mean Platelet Volume 5.9 fL (7.4-10.4); Platelet Count 260 10x3/uL (130-400); RBC Distribution Width 14.5 % (11.5-14.5); Red Blood Cell (RBC) Count 5.16 mill/uL (4.20-5.40); White Blood Cell (WBC) Count 6.8 10x3/uL (4.8-10.8)
[2023-11-24 12:29] LABS: ALT (SGPT) 20 U/L (8-55); AST (SGOT) 19 U/L (5-34); Alkaline Phosphatase 70 U/L (40-110); Anion Gap 18 mmol/L (10-20); BUN (Urea Nitrogen) 13 mg/dL (9.8-20.1); Bilirubin, Total 0.6 mg/dL (0.2-1.2); Calc. Creatinine Clearance 0 mL/min (70-130); Calcium 9.8 mg/dL (7.8-10.44); Carbon Dioxide 25 mmol/L (23-31); Chloride 101 mmol/L (98-107); Estimated GFR 65; Globulin 3.8 g/dL (2.4-3.5); Glucose 215 mg/dL (83-110); Potassium 4.2 mmol/L (3.5-5.1); Protein, Total 7.8 g/dL (5.8-8.1); Sodium 140 mmol/L (136-145)
== END 2023-11-24 13:15 | disposition home or self-care (01) ==
LOC: BURERS 11:44
DX: I21.4 Non-ST elevation (NSTEMI) myocardial infarction (principal); R00.2 Palpitations; E11.9 Type 2 diabetes mellitus without complications; I10 Essential (primary) hypertension; Z79.84 Long term (current) use of oral hypoglycemic drugs; Z79.82 Long term (current) use of aspirin; Z79.4 Long term (current) use of insulin; Z79.899 Other long term (current) drug therapy
CPT/HCPCS: 71045; 80053; 83880; 84484; 85025; 93005

== ENCOUNTER 2024-05-04 08:07 | Emergency (ER) | payer MEDICARE ==
[2024-05-04] MEDS ORDERED: Ipratropium/Albuterol 3 ML NEB ONE ×2 (08:23→08:49)
[2024-05-04] MEDS ORDERED: Ibuprofen 200 MG TAB ONE (08:23)
[2024-05-04 08:33] LABS: #Basophils 0.1 thou/uL (0.0-0.2); #Eosinophils 0.1 thou/uL (0.0-0.7); #Lymphocytes 1.1 thou/uL (1.20-3.40); #Monocytes 0.7 thou/uL (0.11-0.59); #Neutrophils 3.8 thou/uL (1.40-6.50); %Eosinophils 1.5 % (0.0-10.0); %Lymphocytes 18.6 % (21.0-51.0); %Monocytes 12.3 % (0.0-10.0); %Neutrophils 66.6 % (42.0-75.0); Hemoglobin 12.7 g/dL (12.0-16.0); Mean Corpuscular Hemoglobin 25.4 pg (27.0-31.0); Mean Corpuscular Volume 81.9 fl (78.0-98.0); Mean Platelet Volume 5.4 fL (7.4-10.4); Platelet Count 284 10x3/uL (130-400); RBC Distribution Width 13.5 % (11.5-14.5); Red Blood Cell (RBC) Count 5.01 mill/uL (4.20-5.40); White Blood Cell (WBC) Count 5.7 10x3/uL (4.8-10.8)
[2024-05-04 08:49] LABS: Base Excess-Venous -1.2 mmol/L (-2.0 to 3.0); CO2 Tension (PvCO2) 45.9 mmHg (42.0-51.0); Calcium, Ionized 1.13 mmol/L (1.15-1.33); Chloride 103 mmol/L (98-107); Hemoglobin - Calc 15.1 g/dL (12.0-16.0); Sodium 141 mmol/L (138-145); T. Carbon Dioxide 26.4 mmol/L (22.0-28.0); vO2 Saturation-calc 82.4 % (60.0-85.0)
[2024-05-04] MEDS ORDERED: methylPREDNISolone Sod Succ/PF 125 MG/2 ML VIAL ONE (08:49)
[2024-05-04] MEDS ORDERED: Sodium Chloride 0.9% 100 ML ONE (08:53)
[2024-05-04] MEDS ORDERED: Azithromycin 500 MG VIAL ONE (08:53)
[2024-05-04 09:01] LABS: ALT (SGPT) 18 U/L (8-55); AST (SGOT) 27 U/L (5-34); Albumin 3.9 g/dL (3.4-4.8); Alkaline Phosphatase 59 U/L (40-110); Anion Gap 17 mmol/L (10-20); BUN (Urea Nitrogen) 19 mg/dL (9.8-20.1); Bilirubin, Total 0.5 mg/dL (0.2-1.2); Calc. Creatinine Clearance 0 mL/min (70-130); Calcium 9.6 mg/dL (7.8-10.44); Carbon Dioxide 23 mmol/L (23-31); Chloride 102 mmol/L (98-107); Estimated GFR 59; Globulin 4.2 g/dL (2.4-3.5); Glucose 167 mg/dL (83-110); Potassium 3.9 mmol/L (3.5-5.1); Protein, Total 8.1 g/dL (5.8-8.1); Sodium 138 mmol/L (136-145)
[2024-05-04 09:05] LABS: Troponin I 0.363 ng/mL (< 0.028)
[2024-05-04] MEDS ORDERED: Aspirin Chewable 81 MG TAB ONE (09:14)
[2024-05-04] MEDS ORDERED: Iopamidol 370 76% 100 ML VIAL ONE (10:11)
[2024-05-04] MEDS ORDERED: Albuterol 2.5 MG (3 mL) NEB ONE (10:11)
[2024-05-04] MEDS ORDERED: cefTRIAXone (ROCEPHIN) 1 GM VIAL ONE (10:19)
[2024-05-04] MEDS ORDERED: Enoxaparin 100 MG (1 mL) SYRINGE ONE (10:33)
== END 2024-05-04 11:24 | disposition left against medical advice (07) ==
LOC: BURERS 08:07
DX: J18.9 Pneumonia, unspecified organism (principal); A41.9 Sepsis, unspecified organism; R79.89 Other specified abnormal findings of blood chemistry; E11.9 Type 2 diabetes mellitus without complications; E78.5 Hyperlipidemia, unspecified; I10 Essential (primary) hypertension; Z79.82 Long term (current) use of aspirin; Z79.84 Long term (current) use of oral hypoglycemic drugs; Z79.899 Other long term (current) drug therapy
CPT/HCPCS: 71045; 71275; 80053; 82330; 82435; 82803; 83605; 83880; 84132; 84295; 84484; 85014; 85025; 85379; 87040; 87070; 87205; 93005; 94640; 94760; 96365; 96372; 96375; J0456; J0696; J1650; J2919; J7611; J7620; Q9967